=== PATIENT | male | born 1990 | race African-American/Black ===

== ENCOUNTER 2018-03-25 11:24 | Emergency (ER) | payer OTHER ==
[~2018-03-25] VITALS: Ht 195.6 cm; Wt 113.4 kg
[2018-03-25 11:24] VITALS: BP 127/51
== END 2018-03-25 12:27 | disposition home or self-care (01) ==
LOC: ER 11:24
DX: L03.031 Cellulitis of right toe (principal); F17.200 Nicotine dependence, unspecified, uncomplicated